=== PATIENT | male | born 1950 | race Two or more races ===

== ENCOUNTER 2021-07-06 08:43 | Day surgery (SDC) | payer OTHER | END 2021-07-06 13:50 | disposition home or self-care (01) | LOC: AMB-ENDOS 08:43 | PROVIDERS: ATTEND Surgery | DX: D12.0 Benign neoplasm of cecum (principal); D12.2 Benign neoplasm of ascending colon; D12.5 Benign neoplasm of sigmoid colon; Z20.822 Contact with and (suspected) exposure to COVID-19; K64.8 Other hemorrhoids ==